=== PATIENT | male | born 1970 | race Caucasian/White ===

== ENCOUNTER → 2016-08-03 | Outpatient (REF) | payer BC ==
[2016-08-03 17:00] LABS: ALBUMIN/GLOBULIN RATIO 1.18 (1.00-1.93); ALKALINE PHOSPHATASE 59 U/L (45-117); ALT/SGPT 41 U/L (12-78); ANION GAP 4 MEQ/L (8-16); AST/SGOT 21 U/L (15-37); BILIRUBIN,TOTAL 0.6 MG/DL (0.2-1.0); BLOOD UREA NITROGEN 19 MG/DL (7-18); CALCIUM LEVEL 9.2 MG/DL (8.5-10.1); CARBON DIOXIDE LEVEL 32 MEQ/L (21-32); CHLORIDE LEVEL 105 MEQ/L (98-107); CHOLESTEROL LEVEL 214 MG/DL (<200); CREATININE FOR GFR 0.92 MG/DL (0.70-1.30); FREE T4 1.04 NG/DL (0.76-1.46); GLOMERULAR FILTRATION RATE > 60.0 (>60); GLUCOSE, FASTING 74 MG/DL (70-105); POTASSIUM SERUM 3.9 MEQ/L (3.5-5.1); SODIUM LEVEL 141 MEQ/L (136-145); TOTAL PROTEIN 7.4 GM/DL (6.4-8.2); TRIGLYCERIDES LEVEL 71 MG/DL (<150)
== END ==
LOC: M LABDRAW1 15:38
PROVIDERS: ATTEND Physician Assistant
DX: E78.4 Other hyperlipidemia (principal); E04.1 Nontoxic single thyroid nodule; Z83.49 Family history of other endocrine, nutritional and metabolic diseases; Z80.42 Family history of malignant neoplasm of prostate
CPT/HCPCS: 36415; 80053; 80061; 81291; 83090; 84439; 84443; G0103

== ENCOUNTER → 2016-08-03 | Outpatient (CLI) | payer BC ==
--- NOTE | 2016-08-03 14:59 | REP ---
Clinical: Follow up thyroid nodule/cyst. Comparison: 07/23/2015. Technique: Real time claudio scale and color evaluation using linear high frequency and curved array transducers. Findings: The thyroid gland is relatively normal in size, contour and overall parenchymal echogenicity. The right thyroid lobe measures 4.5 x 1.7 x 1.5 cm and includes a stable 9 x 8 x 3 mm cyst in the anterior mid lobe and stable 2 mm hypoechoic nodule/cyst in the posterior mid lobe. The left thyroid lobe measures 4.2 x 1.2 x 1.5 cm and includes stable 7 x 7 x 4 mm complex cyst in the posterior mid lobe. Impression: Stable appearance to the thyroid gland and associated cyst/nodules. No change from prior examination.
== END ==
LOC: M WHC 14:07
PROVIDERS: ATTEND Physician Assistant
DX: E04.1 Nontoxic single thyroid nodule (principal)

== ENCOUNTER → 2016-08-22 | Outpatient (REF) | payer BC ==
[2016-08-22 12:15] LABS: FOLATE > 24.0 NG/ML; VITAMIN B12 LEVEL 432 PG/ML
== END ==
LOC: M LABDRAW1 11:17
PROVIDERS: ATTEND Family Medicine
DX: E72.12 Methylenetetrahydrofolate reductase deficiency (principal); Z83.49 Family history of other endocrine, nutritional and metabolic diseases

== ENCOUNTER 2016-09-26 15:21 | Emergency (ER) | payer BC ==
[~2016-09-26] VITALS: Ht 182.9 cm; Wt 81.2 kg
[2016-09-26 15:22] VITALS: BP 182/88
[2016-09-26] MEDS ORDERED: CLON0.5T (15:39)
[2016-09-26] MEDS ORDERED: MORPHINE 4 MG/ML 1ML SYRINGE IV ONE (16:00)
[2016-09-26] MEDS ORDERED: ONDANSETRON 4MG/2ML VIAL (J2405) IV ONE (16:00)
[2016-09-26] MEDS ORDERED: NS 1,000 ML IV ONE (16:00)
[2016-09-26] MEDS ORDERED: KETOROLAC 30 MG/ML VIAL (J1885) IV ONE (16:00)
--- NOTE | 2016-09-26 16:31 | REP ---
Clinical: Right flank pain. Findings: Acute right-sided obstructive uropathy includes perinephric and periureteral stranding as well as hydronephrosis secondary to a 3 mm calculus at the ureterovesicle junction which appears to just about enter into the bladder. Multiple smaller nonobstructing right renal calculi measure up to approximately 2 mm. Left kidney demonstrates multiple presumed parapelvic cysts up to approximately 3.6 cm without hydronephrosis nephrolithiasis. Liver, spleen, pancreas, gallbladder, and bilateral adrenal glands are normal. The enteric system is without obstruction or acute inflammatory process. Pelvis demonstrates relatively normal bladder as described above. Prostate gland is normal. No ascites. No adenopathy. No free air. Abdominal aorta without aneurysm. Surrounding musculoskeletal structures are intact. Lung bases are clear. Impression: Acute right-sided obstructive uropathy with a 3 mm calculus at the ureterovesicle junction which appears to just about to enter into the bladder. Smaller nonobstructing right renal calculi up to 2 mm identified as well as left parapelvic cysts up to 3.6 cm. Signed by Chas Tucker MD 09/26/2016 04:23 P
[2016-09-26 16:44] LABS: BASO % 0.4 % (0.0-1.0); EOS % 0.6 % (0.0-3.0); LARGE UNSTAINED CELL # 0.1 K/mm3 (0.0-0.4); LARGE UNSTAINED CELL % 1.1 % (0.0-4.0); LYMPH # 1.1 K/mm3 (1.5-4.5); LYMPH % 11.8 % (24.0-44.0); MEAN CORPUSCULAR HEMOGLOBIN 31.3 pg (27.0-33.0); MEAN CORPUSCULAR VOLUME 89.4 fl (80.0-96.0); MONO # 0.3 K/mm3 (0.0-0.8); MONO % 3.3 % (0.0-5.0); NEUTROPHILS # 7.6 K/mm3 (1.8-7.7); NEUTROPHILS % 82.8 % (36.0-66.0); PLATELET COUNT, AUTOMATED 314 k/mm3 (150-450); RED CELL DISTRIBUTION WIDTH 12.2 % (11.5-14.5); WHITE BLOOD COUNT 9.1 K/mm3 (4.0-10.0)
[2016-09-26] MEDS ORDERED: FLOM5CAP PO (16:48)
[2016-09-26] MEDS ORDERED: NAPR500T2 PO (16:48)
[2016-09-26] MEDS ORDERED: ZOFR4TAB3 PO (16:48)
[2016-09-26] MEDS ORDERED: PERC5TAB6 PO (16:48)
[2016-09-26] MEDS ORDERED: TAMSULOSIN 0.4 MG CAP PO ONE (17:00)
[2016-09-26 17:01] LABS: ALBUMIN 4.4 GM/DL (3.2-5.2); ALBUMIN/GLOBULIN RATIO 1.16 (1.00-1.93); ALKALINE PHOSPHATASE 65 U/L (45-117); ALT/SGPT 35 U/L (12-78); ANION GAP 11 MEQ/L (8-16); AST/SGOT 18 U/L (15-37); BILIRUBIN,DIRECT 0.1 MG/DL (0.0-0.2); BILIRUBIN,TOTAL 0.4 MG/DL (0.2-1.0); BLOOD UREA NITROGEN 23 MG/DL (7-18); CALCIUM LEVEL 9.1 MG/DL (8.5-10.1); CARBON DIOXIDE LEVEL 25 MEQ/L (21-32); CHLORIDE LEVEL 101 MEQ/L (98-107); CREATININE FOR GFR 1.33 MG/DL (0.70-1.30); GLOMERULAR FILTRATION RATE > 60.0 (>60); GLUCOSE, FASTING 126 MG/DL (70-105); POTASSIUM SERUM 3.7 MEQ/L (3.5-5.1); SODIUM LEVEL 137 MEQ/L (136-145); TOTAL PROTEIN 8.2 GM/DL (6.4-8.2)
== END 2016-09-26 17:05 | disposition home or self-care (01) ==
LOC: M ED 17:01
DX: N20.1 Calculus of ureter (principal); F41.9 Anxiety disorder, unspecified
CPT/HCPCS: 74176; 80048; 80076; 83690; 85025; 96374; 96375; 99283; J1885; J2405

== ENCOUNTER → 2017-07-04 | Outpatient (REF) | payer BC ==
[2017-07-04 13:18] LABS: BASO % 0.8 % (0.0-1.0); EOS # 0.1 10^3/uL (0.0-0.50); EOS % 1.8 % (0.0-3.0); HEMATOCRIT 47.1 % (42.0-52.0); IMMATURE GRANULOCYTE % 0.2 % (0-3.0); LYMPH # 1.2 10^3/uL (1.5-4.5); LYMPH % 24.7 % (24.0-44.0); MEAN CORPUSCULAR HEMOGLOBIN 29.6 pg (27.0-33.0); MEAN CORPUSCULAR VOLUME 87.2 fl (80.0-96.0); MONO # 0.4 10^3/uL (0.0-0.8); MONO % 7.9 % (0.0-5.0); NEUTROPHILS # 3.2 10^3/uL (1.8-7.7); NEUTROPHILS % 64.6 % (36.0-66.0); PLATELET COUNT, AUTOMATED 292 10^3/uL (150-450); RED CELL DISTRIBUTION WIDTH 12.6 % (11.5-14.5); WHITE BLOOD COUNT 4.9 10^3/uL (4.0-10.0)
[2017-07-04 13:56] LABS: BLOOD UREA NITROGEN 18 MG/DL (7-18); CREATININE FOR GFR 1.01 MG/DL (0.70-1.30); GLUCOSE, FASTING 88 MG/DL (70-100)
[2017-07-04 13:57] LABS: ALBUMIN 4.3 GM/DL (3.2-5.2); ALKALINE PHOSPHATASE 57 U/L (45-117); ALT/SGPT 46 U/L (12-78); ANION GAP 6 MEQ/L (8-16); AST/SGOT 24 U/L (7-37); BILIRUBIN,TOTAL 0.6 MG/DL (0.2-1.0); CALCIUM LEVEL 9.2 MG/DL (8.5-10.1); CARBON DIOXIDE LEVEL 30 MEQ/L (21-32); CHLORIDE LEVEL 105 MEQ/L (98-107); CHOLESTEROL LEVEL 230 MG/DL (<200); CHOLESTEROL RISK RATIO 4.509 (<5); FREE T4 1.02 NG/DL (0.76-1.46); GLOMERULAR FILTRATION RATE > 60.0 (>60); HDL CHOLESTEROL 51 MG/DL (>40); LDL CHOLESTEROL 159.4 MG/DL (<100); LIPASE 151 U/L (73-393); NON-HDL-C 179 MG/DL; POTASSIUM SERUM 4.4 MEQ/L (3.5-5.1); PSA SCREENING 1.24 NG/ML (< 4.0); SODIUM LEVEL 141 MEQ/L (136-145); THYROID STIMULATING HORMONE 0.921 uIU/ML (0.358-3.740); TOTAL PROTEIN 7.6 GM/DL (6.4-8.2); TRIGLYCERIDES LEVEL 98 MG/DL (<150)
[2017-07-04 14:13] LABS: TOTAL 25(OH) VITAMIN D 20.5 NG/ML (30.0-100.0); VITAMIN B12 LEVEL 491 PG/ML (247-911)
[2017-07-05 11:52] LABS: FOLATE 20.9 NG/ML (>5.4)
[2017-07-06 00:07] LABS: HOMOCYST(E)INE SERUM 10.9 umol/L (0.0-15.0)
== END ==
LOC: M LAB REF 13:05
DX: E78.2 Mixed hyperlipidemia (principal); R10.13 Epigastric pain; Z80.42 Family history of malignant neoplasm of prostate; E55.9 Vitamin D deficiency, unspecified; E72.12 Methylenetetrahydrofolate reductase deficiency; E04.1 Nontoxic single thyroid nodule
CPT/HCPCS: 82746

== ENCOUNTER → 2017-07-04 | Outpatient (REF) | payer BC | LOC: M SFHCPLAZ 10:32 | DX: E78.2 Mixed hyperlipidemia (principal); E72.12 Methylenetetrahydrofolate reductase deficiency; E04.1 Nontoxic single thyroid nodule; R10.13 Epigastric pain; Z80.42 Family history of malignant neoplasm of prostate; E55.9 Vitamin D deficiency, unspecified; Z53.9 Procedure and treatment not carried out, unspecified reason ==

== ENCOUNTER → 2017-07-07 | Outpatient (CLI) | payer BC | LOC: M RAD 10:31 | DX: E04.1 Nontoxic single thyroid nodule (principal) | CPT/HCPCS: 76536 ==

== ENCOUNTER → 2017-07-20 | Outpatient (CLI) | payer BC ==
[~2017-07-20] MED LIST: E-Z-GAS II EFFERVESCENT PACKET (SODIUM BICARB./CITRIC ACID/SIMETHICONE) As Ordered; E-Z-HD 98% w/w 340GM SUSP BTL As Ordered; E-Z-PAQUE 96% w/w SUSP 176GM BTL As Ordered
== END ==
LOC: M RAD 08:42
DX: R10.13 Epigastric pain (principal)

== ENCOUNTER → 2017-08-01 | Outpatient (CLI) | payer BC | LOC: M RAD 11:25 | DX: M54.6 Pain in thoracic spine (principal) | CPT/HCPCS: 72072 ==

== ENCOUNTER → 2019-01-11 | Outpatient (REF) | payer BC ==
[~2019-01-11] MED LIST changes: +CLON0.5T8; -E-Z-GAS II EFFERVESCENT PACKET (SODIUM BICARB./CITRIC ACID/SIMETHICONE) As Ordered; -E-Z-HD 98% w/w 340GM SUSP BTL As Ordered; -E-Z-PAQUE 96% w/w SUSP 176GM BTL As Ordered; +FLOM0.4C39 PO; +NAPR-885 PO; +PERC5TAB12 PO; +ZOFR4TAB14 PO
[2019-01-11 12:42] LABS: HEMATOCRIT 47.8 % (42.0-52.0); HEMOGLOBIN 15.8 g/dl (13.5-17.5); MEAN CORPUSCULAR HEMOGLOBIN 29.2 pg (27.0-33.0); MEAN CORPUSCULAR HGB CONC 33.1 g/dl (32.0-36.5); MEAN CORPUSCULAR VOLUME 88.4 fl (80.0-96.0); PLATELET COUNT, AUTOMATED 300 10^3/uL (150-450); RED BLOOD COUNT 5.41 10^6/uL (4.30-6.10); WHITE BLOOD COUNT 4.8 10^3/uL (4.0-10.0)
[2019-01-11 12:58] LABS: ALBUMIN 4.4 GM/DL (3.2-5.2); ALT/SGPT 33 U/L (12-78); BILIRUBIN,TOTAL 0.8 MG/DL (0.2-1.0); BLOOD UREA NITROGEN 19 MG/DL (7-18); CALCIUM LEVEL 9.7 MG/DL (8.5-10.1); CARBON DIOXIDE LEVEL 32 MEQ/L (21-32); CHLORIDE LEVEL 106 MEQ/L (98-107); CHOLESTEROL LEVEL 206 MG/DL (<200); CHOLESTEROL RISK RATIO 3.886 (<5); CREATININE FOR GFR 1.01 MG/DL (0.70-1.30); FREE T4 1.09 NG/DL (0.76-1.46); GLOMERULAR FILTRATION RATE > 60.0 (>60); GLUCOSE, FASTING 87 MG/DL (70-100); HDL CHOLESTEROL 53 MG/DL (>40); LDL CHOLESTEROL 138 MG/DL (<100); NON-HDL-C 153 MG/DL; POTASSIUM SERUM 4.6 MEQ/L (3.5-5.1); SODIUM LEVEL 141 MEQ/L (136-145); THYROID STIMULATING HORMONE 0.919 uIU/ML (0.358-3.740); TOTAL PROTEIN 7.9 GM/DL (6.4-8.2); TRIGLYCERIDES LEVEL 73 MG/DL (<150)
[2019-01-11 13:12] LABS: ERYTHROCYTE SEDIMENTATION RATE 5 mm/hr (0-15)
== END ==
LOC: M SFHCPLAZ 10:09
PROVIDERS: ATTEND Family Medicine
DX: G90.01 Carotid sinus syncope (principal); E04.1 Nontoxic single thyroid nodule; E78.5 Hyperlipidemia, unspecified; F41.9 Anxiety disorder, unspecified

== ENCOUNTER → 2019-01-25 | Outpatient (CLI) | payer BC ==
[~2019-01-25] MED LIST changes: +ISOVUE-370 76% 100ML VIAL (Q9967) As Ordered ONE
--- NOTE | 2019-01-25 09:02 | REPVR ---
PROCEDURE INFORMATION: Exam: CT Neck With Contrast Exam date and time: 01/25/2019 8:25 AM Clinical history: 48 years old, male; Other: Thyroid nodule; Additional info: Wendytodyni, thyroid nodulect1, us2 TECHNIQUE: Imaging protocol: Computed tomography images of the neck with intravenous contrast. Radiation optimization: All CT scans at this facility use at least one of these dose optimization techniques: automated exposure control; mA and/or kV adjustment per patient size (includes targeted exams where dose is matched to clinical indication); or iterative reconstruction. Contrast material: ISOVUE 370; Contrast volume: 75 ml; Contrast route: IV; COMPARISON: Thyroid, ST head+neck US 07/07/2017 10:37 AM FINDINGS: Nasopharynx: Unremarkable. Oropharynx: Unremarkable. No significant tonsillar enlargement. Hypopharynx: Unremarkable Larynx: Unremarkable. Normal epiglottis. Retropharyngeal space: Unremarkable. Submandibular/Parotid glands: Normal. Glands are normal in size. Thyroid: Incidental sub-1.5 cm thyroid nodules. No imaging follow-up indicated per ACR guidelines. Lymph nodes: Unremarkable. No lymphadenopathy. Trachea: Visualized trachea is unremarkable. Lungs: Unremarkable as visualized. Bones/joints: Unremarkable. No acute fracture. Soft tissues: Unremarkable. No significant soft tissue swelling. IMPRESSION: 1. No acute findings. 2. Nonacute/incidental findings above. COMMENT: In patients aged 35 years and older with an incidental thyroid nodule equal to or greater than 1.[address], MRI or extrathyroidal US, further evaluation with dedicated thyroid US is recommended for patients with normal life expectancy and without comorbidities. For smaller nodules without suspicious features, no further evaluation or follow up is recommended. Electronically signed by: Daniel Cooley On 01/25/2019 09:02:05 AM
--- NOTE | 2019-01-25 09:37 | REP ---
CAROTID ULTRASOUND: Real-time ultrasound evaluation and duplex Doppler interrogation of the extracranial carotid vasculature is performed. There is no significant plaquing or narrowing in both carotid bulbs, internal or external carotid arteries. There is no significant luminal narrowing. There is no evidence of hemodynamically significant stenosis of either internal carotid artery. Normal flow velocities are seen. The vertebral arteries demonstrate normal direction of flow. RIGHT LEFT Peak systolic velocity ICA 82 cm/s 66.4 cm/s End diastolic velocity ICA 36.9 cm/s 27.1 cm/s Peak systolic velocity CCA 93.0 cm/s 104.2 cm/s Peak systolic velocity ECA 72.3 cm/s 65.5 cm/s ICA/CCA ratio 0.88 0.64 IMPRESSION: No significant luminal narrowing of the internal carotid arteries . No evidence of hemodynamically significant stenosis. Electronically Signed by Иван Crocker MD 01/25/2019 09:29 A
== END ==
LOC: M RAD 07:55
PROVIDERS: ATTEND Family Medicine
DX: E04.1 Nontoxic single thyroid nodule (principal); G45.1 Carotid artery syndrome (hemispheric)

== ENCOUNTER → 2019-12-27 | Outpatient (REF) | payer BC ==
[~2019-12-27] MED LIST changes: +CLON0.5T2; -CLON0.5T8; -ISOVUE-370 76% 100ML VIAL (Q9967) As Ordered ONE
[2019-12-27 19:16] LABS: HEMATOCRIT 48.4 % (42.0-52.0); HEMOGLOBIN 16.1 g/dl (13.5-17.5); MEAN CORPUSCULAR HEMOGLOBIN 29.7 pg (27.0-33.0); MEAN CORPUSCULAR HGB CONC 33.3 g/dl (32.0-36.5); MEAN CORPUSCULAR VOLUME 89.3 fl (80.0-96.0); PLATELET COUNT, AUTOMATED 304 10^3/uL (150-450); RED BLOOD COUNT 5.42 10^6/uL (4.30-6.10); WHITE BLOOD COUNT 6.2 10^3/uL (4.0-10.0)
[2019-12-27 19:18] LABS: APPEARANCE, URINE CLEAR (CLEAR); BACTERIA, URINE AUTO NEGATIVE (NEGATIVE); BILIRUBIN, URINE AUTO NEGATIVE (NEGATIVE); BLOOD, URINE BLOOD 1+ (NEGATIVE); COLOR, URINE YELLOW (YELLOW); GLUCOSE, URINE (UA) AUTO NEGATIVE (NEGATIVE); KETONE, URINE AUTO NEGATIVE (NEGATIVE); LEUKOCYTE ESTERASE, URINE AUTO NEGATIVE (NEGATIVE); MUCUS, URINE SMALL (NEGATIVE); NITRITE, URINE AUTO NEGATIVE (NEGATIVE); PROTEIN, URINE AUTO NEGATIVE (NEGATIVE); RBC, URINE AUTO 4 /HPF (0-3); SPECIFIC GRAVITY URINE AUTO 1.021 (1.002-1.035); SQUAMOUS EPITHELIAL CELL UR AU 0 /HPF (0-6); UROBILINOGEN, URINE AUTO 0.2 mg/dL (0.0-2.0); WBC, URINE AUTO 1 /HPF (0-3)
[2019-12-27 19:57] LABS: ALBUMIN 4.4 GM/DL (3.2-5.2); ALT/SGPT 38 U/L (12-78); AMYLASE 91 U/L (25-115); BILIRUBIN,TOTAL 0.5 MG/DL (0.2-1.0); BLOOD UREA NITROGEN 20 MG/DL (7-18); CALCIUM LEVEL 9.7 MG/DL (8.5-10.1); CARBON DIOXIDE LEVEL 28 MEQ/L (21-32); CHLORIDE LEVEL 105 MEQ/L (98-107); CHOLESTEROL LEVEL 237 MG/DL (<200); CHOLESTEROL RISK RATIO 4.647 (<5); GLOMERULAR FILTRATION RATE > 60.0 (>56); GLUCOSE, FASTING 68 MG/DL (70-100); HDL CHOLESTEROL 51 MG/DL (>40); LDL CHOLESTEROL 166 MG/DL (<100); LIPASE 178 U/L (73-393); NON-HDL-C 186 MG/DL; POTASSIUM SERUM 4.7 MEQ/L (3.5-5.1); SODIUM LEVEL 138 MEQ/L (136-145); TOTAL PROTEIN 7.9 GM/DL (6.4-8.2); TRIGLYCERIDES LEVEL 102 MG/DL (<150)
== END ==
LOC: M LABDRWAD 17:08
PROVIDERS: ATTEND Family Medicine
DX: Z12.5 Encounter for screening for malignant neoplasm of prostate (principal); N45.1 Epididymitis; E78.5 Hyperlipidemia, unspecified; R10.9 Unspecified abdominal pain
CPT/HCPCS: 36415; 80053; 80061; 81001; 82150; 83690; 85027; 87086; G0103

== ENCOUNTER → 2020-01-28 | Outpatient (CLI) | payer BC ==
[~2020-01-28] MED LIST changes: +GASTROGRAFIN SOLUTION 30ML (Q9963) As Ordered ONE
--- NOTE | 2020-02-05 08:30 | REP ---
CT OF THE ABDOMEN AND PELVIS CLINICAL: Generalized abdominal pain. TECHNIQUE: Axial noncontrast images from the lung bases to the pubic symphysis with coronal and sagittal reformations. COMPARISON: 09/26/2016 FINDINGS: Liver, spleen, pancreas, gallbladder, and bilateral adrenal glands are normal for noncontrast evaluation. The kidneys demonstrate presumed bilateral peripelvic cysts (left greater than right) along with few small nonobstructing intrarenal calculi measuring up to 2 mm. No hydroureter or obstructing ureteral calculi are identified. The enteric system is without obstruction or acute inflammatory process. Normal terminal ileum and appendix are identified in the right lower quadrant. Sigmoid diverticula noted without acute diverticulitis. Pelvis demonstrates mild prostatomegaly with mass effect on the base of the bladder. No pelvic fluid. No ascites. No free air. No adenopathy. Abdominal aorta without aneurysm. Surrounding musculoskeletal structures are intact and without acute osseous abnormality. IMPRESSION: * Kidneys demonstrate relatively stable bilateral peripelvic cysts and few bilateral nonobstructing intrarenal calculi up to 2 mm. * Sigmoid diverticula without acute diverticulitis. * Mild prostatomegaly with mass effect on the base of the bladder. MTDD
== END ==
LOC: M RAD 08:40
PROVIDERS: ATTEND Family Medicine
DX: R10.9 Unspecified abdominal pain (principal); N45.1 Epididymitis; N28.1 Cyst of kidney, acquired; N20.0 Calculus of kidney
CPT/HCPCS: 74176; Q9963

== ENCOUNTER → 2020-05-16 | Outpatient (CLI) | payer SELFPAY ==
[~2020-05-16] MED LIST changes: -GASTROGRAFIN SOLUTION 30ML (Q9963) As Ordered ONE
== END ==
LOC: M LABSMTC 08:44
PROVIDERS: ATTEND Pediatrics
DX: Z20.822 Contact with and (suspected) exposure to COVID-19 (principal)

== ENCOUNTER → 2020-07-22 | Outpatient (CLI) | payer BC ==
[~2020-07-22] MED LIST changes: -CLON0.5T2; +CLON0.5T2 PO; +RA T500C2 PO; +VITMTA PO
== END ==
LOC: M LABSMTC 11:04
PROVIDERS: ATTEND Anesthesiology
DX: Z01.812 Encounter for preprocedural laboratory examination (principal); Z20.822 Contact with and (suspected) exposure to COVID-19

== ENCOUNTER → 2020-07-23 | Outpatient (CLI) | payer BC ==
[2020-07-23 16:06] LABS: APPEARANCE, URINE CLEAR (CLEAR); BACTERIA, URINE AUTO NEGATIVE (NEGATIVE); BILIRUBIN, URINE AUTO NEGATIVE (NEGATIVE); BLOOD, URINE BLOOD 1+ (NEGATIVE); COLOR, URINE YELLOW (YELLOW); GLUCOSE, URINE (UA) AUTO NEGATIVE (NEGATIVE); KETONE, URINE AUTO NEGATIVE (NEGATIVE); LEUKOCYTE ESTERASE, URINE AUTO NEGATIVE (NEGATIVE); MUCUS, URINE SMALL (NEGATIVE); NITRITE, URINE AUTO NEGATIVE (NEGATIVE); PROTEIN, URINE AUTO NEGATIVE (NEGATIVE); RBC, URINE AUTO 2 /HPF (0-3); SPECIFIC GRAVITY URINE AUTO 1.025 (1.002-1.035); SQUAMOUS EPITHELIAL CELL UR AU 0 /HPF (0-6); WBC, URINE AUTO 1 /HPF (0-3)
== END ==
LOC: M WUC 14:02
PROVIDERS: ATTEND Nurse Practitioner Women's Health
DX: R31.29 Other microscopic hematuria (principal)

== ENCOUNTER 2020-07-27 10:06 | Day surgery (SDC) | payer BC ==
[~2020-07-27] VITALS: Ht 185.4 cm; Wt 84.4 kg
[~2020-07-27 10:06] MED LIST changes: +NS 1,000 ML IV ONE
[2020-07-27] MEDS ORDERED: LIDOCAINE 2% 100MG/5ML SDV (FOR ANES.) As Ordered ONE (10:16)
[2020-07-27] MEDS ORDERED: propofoL 200 MG/20 ML VIAL As Ordered ONE (10:16)
--- NOTE | 2020-07-27 12:07 | ROOR ---
Patient Name: Edda Zuñiga Procedure Date: 07/27/2020 11:41 AM Date of : 1970 Age: 49 Room: [facility] Gender: Male Note Status: Finalized Procedure: Colonoscopy Indications: Pelvic pain, Lower abdominal pain, Change in bowel habits Providers: Faisal LYNN MD Referring MD: Nirmal Jain MD Requesting Provider: Medicines: Monitored Anesthesia Care Complications: No immediate complications. Procedure: Pre-Anesthesia Assessment: - The heart rate, respiratory rate, oxygen saturations, blood pressure, adequacy of pulmonary ventilation, and response to care were monitored throughout the procedure. The Colonoscope was introduced through the anus and advanced to 10 cm into the ileum. The colonoscopy was performed without difficulty. The patient tolerated the procedure well. The quality of the bowel preparation was good. Findings: The perianal and digital rectal examinations were normal. Two sessile polyps were found in the ascending colon and cecum. The polyps were 6 to 7 mm in size. These polyps were removed with a cold snare. Resection and retrieval were complete. Small Internal Hemorrhoids. The exam was otherwise without abnormality on direct and retroflexion views. Impression: - Two 6 to 7 mm polyps in the ascending colon and in the cecum, removed with a cold snare. Resected and retrieved. - Small Internal Hemorrhoids. - The examination of the colon and terminal ileum was otherwise normal on direct and retroflexion views. Recommendation: - Use fiber, for example Citrucel, Fibercon, Konsyl or Metamucil. - Miralax 1 capful (17 grams) in 8 ounces of water PO daily. - Repeat colonoscopy in 5 years for surveillance. Procedure Code(s): --- Professional --- 80502, Colonoscopy, flexible; with removal of tumor(s), polyp(s), or other lesion(s) by snare technique Diagnosis Code(s): --- Professional --- R19.4, Change in bowel habit R10.30, Lower abdominal pain, unspecified R10.2, Pelvic and perineal pain K63.5, Polyp of colon CPT copyright 2019 [employer]. All rights reserved. The codes documented in this report are preliminary and upon tank pumper review may be revised to meet current compliance requirements. Faisal Lynn MD Faisal LYNN MD 07/27/2020 12:06:49 PM Electronically signed by Faisal LYNN MD Number of Addenda: 0 Note Initiated On: 07/27/2020 11:41 AM Estimated Blood Loss: Estimated blood loss: none.
[2020-07-27 12:38] VITALS: BP 119/71
== END 2020-07-27 12:40 | disposition home or self-care (01) ==
LOC: M OPP 10:06
PROVIDERS: ATTEND Internal Medicine Gastroenterology
DX: K63.5 Polyp of colon (principal); R19.4 Change in bowel habit; R10.2 Pelvic and perineal pain; R10.30 Lower abdominal pain, unspecified; Z79.899 Other long term (current) drug therapy

== ENCOUNTER → 2020-12-17 | Outpatient (CLI) | payer BC ==
[~2020-12-17] MED LIST changes: -NS 1,000 ML IV ONE
--- NOTE | 2020-12-17 12:18 | REP ---
INDICATION: RECURRENT SINUSITIS. COMPARISON: None. TECHNIQUE: Four views FINDINGS: The sinuses are clear. The bony structures are intact. IMPRESSION: Negative radiographs of the sinuses. <Electronically signed by Shaji Freeman > 12/17/20 [id number]
== END ==
LOC: M RAD 11:42
PROVIDERS: ATTEND Physician Assistant Medical
DX: J32.9 Chronic sinusitis, unspecified (principal)

== ENCOUNTER → 2021-01-01 | Outpatient (CLI) | payer BC ==
--- NOTE | 2021-01-01 08:23 | REPVR ---
PROCEDURE INFORMATION: Exam: CT Maxillofacial Without Contrast, Sinus Exam date and time: 01/01/2021 8:02 AM Age: 50 years old Clinical indication: Sinusitis; Chronic; Additional info: Chronic maxillary sinusitis TECHNIQUE: Imaging protocol: CT Maxillofacial without contrast. Focus on the sinuses. Radiation optimization: All CT scans at this facility use at least one of these dose optimization techniques: automated exposure control; mA and/or kV adjustment per patient size (includes targeted exams where dose is matched to clinical indication); or iterative reconstruction. COMPARISON: Thyroid, ST head+neck US 07/07/2017 10:37 AM FINDINGS: Frontal sinuses: Normal. No air-fluid levels. Ethmoid air cells: Minimal ethmoid disease. Sphenoid sinuses: Normal. No air-fluid levels. Maxillary sinuses: Mild polypoid thickening in the dependent maxillary sinus on the right. Nasal cavity/Septum: The nasal septum is midline. The ostiomeatal units are patent. Orbital cavity: The orbits are intact. Bones/joints: No acute fracture. Soft tissues: Unremarkable. Lymph nodes: No lymphadenopathy in the neck. Brain: The included brain demonstrates mild diffuse involutional change for age. IMPRESSION: Limited sinus disease. Electronically signed by: Hamlet Mathew On 01/01/2021 08:23:22 AM
== END ==
LOC: M RAD 07:44
PROVIDERS: ATTEND Otolaryngology
DX: J32.0 Chronic maxillary sinusitis (principal)

== ENCOUNTER → 2021-06-05 | Outpatient (REF) | LOC: M LABSMTC 09:22 | PROVIDERS: ATTEND Pediatrics | DX: Z20.822 Contact with and (suspected) exposure to COVID-19 (principal) ==

== ENCOUNTER → 2021-09-16 | Outpatient (REF) | payer BC | LOC: M LAB REF 15:06 | PROVIDERS: ATTEND Physician Assistant | DX: R53.83 Other fatigue (principal); R05.9 Cough, unspecified ==

== ENCOUNTER → 2021-09-23 | Outpatient (REF) | payer BC ==
[2021-09-23 16:37] LABS: HEMATOCRIT 47.6 % (42.0-52.0); HEMOGLOBIN 15.8 g/dl (13.5-17.5); MEAN CORPUSCULAR HEMOGLOBIN 29.6 pg (27.0-33.0); MEAN CORPUSCULAR HGB CONC 33.2 g/dl (32.0-36.5); MEAN CORPUSCULAR VOLUME 89.1 fl (80.0-96.0); PLATELET COUNT, AUTOMATED 316 10^3/uL (150-450); RED BLOOD COUNT 5.34 10^6/uL (4.30-6.10); WHITE BLOOD COUNT 6.9 10^3/uL (4.0-10.0)
[2021-09-23 17:13] LABS: ALBUMIN 4.3 GM/DL (3.2-5.2); ALT/SGPT 33 U/L (12-78); BILIRUBIN,TOTAL 0.6 MG/DL (0.2-1.0); BLOOD UREA NITROGEN 14 MG/DL (7-18); CALCIUM LEVEL 9.9 MG/DL (8.5-10.1); CARBON DIOXIDE LEVEL 27 MEQ/L (21-32); CHLORIDE LEVEL 109 MEQ/L (98-107); CHOLESTEROL LEVEL 234 MG/DL (<200); CHOLESTEROL RISK RATIO 5.086 (<5); CREATININE FOR GFR 1.04 MG/DL (0.70-1.30); FREE T4 1.15 NG/DL (0.76-1.46); GLOMERULAR FILTRATION RATE > 60.0 (>56); GLUCOSE, FASTING 88 MG/DL (70-100); HDL CHOLESTEROL 46 MG/DL (>40); LDL CHOLESTEROL 165 MG/DL (<100); NON-HDL-C 188 MG/DL; POTASSIUM SERUM 4.2 MEQ/L (3.5-5.1); SODIUM LEVEL 142 MEQ/L (136-145); TOTAL PROTEIN 7.7 GM/DL (6.4-8.2); TRIGLYCERIDES LEVEL 116 MG/DL (<150)
== END ==
LOC: M SFHCADAM 11:25
PROVIDERS: ATTEND Family Medicine
DX: R53.82 Chronic fatigue, unspecified (principal); U09.9 Post COVID-19 condition, unspecified; F32.9 Major depressive disorder, single episode, unspecified; E78.2 Mixed hyperlipidemia; F41.9 Anxiety disorder, unspecified; E04.1 Nontoxic single thyroid nodule; Z12.5 Encounter for screening for malignant neoplasm of prostate; G31.9 Degenerative disease of nervous system, unspecified
CPT/HCPCS: 80053; 80061; 84439; 84443; 85027; 86140; G0103

== ENCOUNTER → 2021-10-09 | Outpatient (CLI) | payer BC | LOC: M RAD 12:33 | PROVIDERS: ATTEND Family Medicine | DX: G31.9 Degenerative disease of nervous system, unspecified (principal) ==

== ENCOUNTER → 2022-01-05 | Outpatient (REF) | payer BC ==
[2022-01-05 18:11] LABS: ALBUMIN 4.4 GM/DL (3.2-5.2); ALT/SGPT 31 U/L (12-78); BILIRUBIN,TOTAL 0.6 MG/DL (0.2-1.0); BLOOD UREA NITROGEN 17 MG/DL (7-18); CALCIUM LEVEL 9.6 MG/DL (8.5-10.1); CARBON DIOXIDE LEVEL 24 MEQ/L (21-32); CHLORIDE LEVEL 105 MEQ/L (98-107); CHOLESTEROL LEVEL 267 MG/DL (<200); CHOLESTEROL RISK RATIO 5.134 (<5); CREATININE FOR GFR 1.09 MG/DL (0.70-1.30); GLOMERULAR FILTRATION RATE > 60.0 (>56); GLUCOSE, FASTING 82 MG/DL (70-100); HDL CHOLESTEROL 52 MG/DL (>40); LDL CHOLESTEROL 188 MG/DL (<100); NON-HDL-C 215 MG/DL; SODIUM LEVEL 138 MEQ/L (136-145); TOTAL PROTEIN 7.7 GM/DL (6.4-8.2); TRIGLYCERIDES LEVEL 137 MG/DL (<150)
[2022-01-05 19:46] LABS: VITAMIN B12 LEVEL 565 PG/ML (247-911)
[2022-01-05 19:47] LABS: FOLATE > 24.0 NG/ML (>5.4)
== END ==
LOC: M SFHCADAM 14:18
PROVIDERS: ATTEND Family Medicine
DX: Z15.89 Genetic susceptibility to other disease (principal); E78.2 Mixed hyperlipidemia

== ENCOUNTER → 2022-08-30 | Outpatient (REF) | payer BC ==
[2022-08-30 16:22] LABS: ALBUMIN 4.7 G/DL (3.2-5.2); ALKALINE PHOSPHATASE 65 U/L (46-116); ALT/SGPT 39 U/L (7.0-40); AST/SGOT 23 U/L (<34); BILIRUBIN,TOTAL 0.8 MG/DL (0.3-1.2); BLOOD UREA NITROGEN 24 MG/DL (9-23); CARBON DIOXIDE LEVEL 28 MMOL/L (20-31); CHLORIDE LEVEL 104 MMOL/L (98-107); CHOLESTEROL LEVEL 216 MG/DL (<200); CHOLESTEROL RISK RATIO 4.46 (<5); CREATININE FOR GFR 1.11 MG/DL (0.70-1.30); GLOMERULAR FILTRATION RATE > 60.0 (>56); GLUCOSE, FASTING 88 MG/DL (60-100); HDL CHOLESTEROL 48.4 MG/DL (>40); LDL CHOLESTEROL 146.2 MG/DL (<100); NON-HDL-C 167.6 MG/DL; POTASSIUM SERUM 4.4 MMOL/L (3.5-5.1); SODIUM LEVEL 139 MMOL/L (136-145); TOTAL PROTEIN 8.4 G/DL (5.7-8.2); TRIGLYCERIDES LEVEL 107 MG/DL (<150)
== END ==
LOC: M SFHCADAM 13:57
PROVIDERS: ATTEND Family Medicine
DX: E78.2 Mixed hyperlipidemia (principal); Z15.89 Genetic susceptibility to other disease

== ENCOUNTER → 2023-05-18 | Outpatient (CLI) | payer OTHER ==
[2023-05-18 18:05] LABS: HEMATOCRIT 47.4 % (42.0-52.0); MEAN CORPUSCULAR HEMOGLOBIN 29.7 pg (27.0-33.0); MEAN CORPUSCULAR HGB CONC 33.8 g/dl (32.0-36.5); MEAN CORPUSCULAR VOLUME 88.1 fl (80.0-96.0); PLATELET COUNT, AUTOMATED 308 10^3/uL (150-450); RED BLOOD COUNT 5.38 10^6/uL (4.30-6.10); WHITE BLOOD COUNT 6.7 10^3/uL (4.0-10.0)
[2023-05-18 18:32] LABS: C REACTIVE PROTEIN QUANTITATIV < 0.40 MG/DL (<1.0)
[2023-05-18 18:34] LABS: ALBUMIN 4.4 G/DL (3.2-5.2); ALKALINE PHOSPHATASE 60 U/L (46-116); ALT/SGPT 32 U/L (7.0-40); AST/SGOT 18 U/L (<34); BILIRUBIN,TOTAL 0.7 MG/DL (0.3-1.2); BLOOD UREA NITROGEN 21 MG/DL (9-23); CALCIUM LEVEL 9.7 MG/DL (8.5-10.1); CARBON DIOXIDE LEVEL 28 MMOL/L (20-31); CHLORIDE LEVEL 105 MMOL/L (98-107); CHOLESTEROL LEVEL 199 MG/DL (<200); CREATININE FOR GFR 0.99 MG/DL (0.70-1.30); GLOMERULAR FILTRATION RATE > 60.0 (>56); GLUCOSE, FASTING 90 MG/DL (60-100); HDL CHOLESTEROL 46.2 MG/DL (>40); NON-HDL-C 152.8 MG/DL; POTASSIUM SERUM 3.9 MMOL/L (3.5-5.1); PSA SCREENING 1.15 NG/ML (< 4.00); SODIUM LEVEL 139 MMOL/L (136-145); TOTAL PROTEIN 7.4 G/DL (5.7-8.2); TRIGLYCERIDES LEVEL 104 MG/DL (<150)
[2023-05-18 18:38] LABS: THYROID STIMULATING HORMONE 1.136 uIU/ML (0.55-4.78)
[2023-05-18 18:59] LABS: HEMOGLOBIN A1c 5.5 % (4.0-6.0)
[2023-05-20 21:07] LABS: ANA (HEP2) Negative (.); HOMOCYST(E)INE SERUM 9.9 umol/L (0.0-14.5)
== END ==
LOC: M LAB 17:30
PROVIDERS: ATTEND Family Medicine
DX: Z12.5 Encounter for screening for malignant neoplasm of prostate (principal); E78.2 Mixed hyperlipidemia; E72.12 Methylenetetrahydrofolate reductase deficiency; F32.9 Major depressive disorder, single episode, unspecified; R53.82 Chronic fatigue, unspecified; F41.9 Anxiety disorder, unspecified; Z13.1 Encounter for screening for diabetes mellitus; E04.1 Nontoxic single thyroid nodule; G31.9 Degenerative disease of nervous system, unspecified
CPT/HCPCS: 36415; 80053; 80061; 83036; 83090; 84439; 84443; 85027; 86038; 86140; G0103

== ENCOUNTER → 2023-06-01 | Outpatient (CLI) | payer OTHER | LOC: M PLARAD 08:52 | PROVIDERS: ATTEND Family Medicine | DX: G31.9 Degenerative disease of nervous system, unspecified (principal); J01.00 Acute maxillary sinusitis, unspecified ==

== ENCOUNTER → 2024-05-14 | Outpatient (REF) | payer OTHER | LOC: M LAB REF 12:03 | PROVIDERS: ATTEND Physician Assistant Medical | DX: B34.9 Viral infection, unspecified (principal) ==

== ENCOUNTER → 2024-06-10 | Outpatient (REF) | payer OTHER ==
[2024-06-10 17:25] LABS: BASO # 0.1 10^3/uL (0.0-0.2); BASO % 1.2 % (0.0-1.0); EOS # 0.2 10^3/uL (0.0-0.5); EOS % 3.6 % (0.0-3.0); HEMATOCRIT 49.7 % (42.0-52.0); HEMOGLOBIN 16.3 g/dl (13.5-17.5); LYMPH # 1.6 10^3/uL (1.5-5.0); LYMPH % 27.2 % (24.0-44.0); MEAN CORPUSCULAR HEMOGLOBIN 29.2 pg (27.0-33.0); MEAN CORPUSCULAR HGB CONC 32.8 g/dl (32.0-36.5); MEAN CORPUSCULAR VOLUME 88.9 fl (80.0-96.0); MONO # 0.4 10^3/uL (0.0-0.8); MONO % 7.4 % (2.0-8.0); NEUTROPHILS # 3.5 10^3/uL (1.5-8.5); NEUTROPHILS % 60.4 % (36.0-66.0); PLATELET COUNT, AUTOMATED 336 10^3/uL (150-450); RED BLOOD COUNT 5.59 10^6/uL (4.30-6.10); WHITE BLOOD COUNT 5.8 10^3/uL (4.0-10.0)
[2024-06-10 17:36] LABS: ERYTHROCYTE SEDIMENTATION RATE 25 mm/hr (0-20)
[2024-06-10 17:44] LABS: HEMOGLOBIN A1c 5.4 % (4.0-6.0)
[2024-06-10 17:54] LABS: C REACTIVE PROTEIN QUANTITATIV < 0.50 MG/DL (<1.0)
[2024-06-10 17:55] LABS: FREE T4 1.32 NG/DL (0.89-1.76); THYROID STIMULATING HORMONE 1.297 uIU/ML (0.55-4.78)
[2024-06-10 17:56] LABS: ALBUMIN 4.2 G/DL (3.2-5.2); ALKALINE PHOSPHATASE 84 U/L (40-129); ALT/SGPT 38 U/L (7.0-40); AST/SGOT 24 U/L (<34); BILIRUBIN,TOTAL 0.6 MG/DL (0.3-1.2); BLOOD UREA NITROGEN 14 MG/DL (9-23); CALCIUM LEVEL 9.7 MG/DL (8.5-10.1); CARBON DIOXIDE LEVEL 28 MMOL/L (20-31); CHLORIDE LEVEL 104 MMOL/L (98-107); CHOLESTEROL LEVEL 204 MG/DL (<200); CHOLESTEROL RISK RATIO 4.37 (<5); CREATININE FOR GFR 1.04 MG/DL (0.70-1.30); GLOMERULAR FILTRATION RATE > 60.0 (>56); GLUCOSE, FASTING 82 MG/DL (60-100); HDL CHOLESTEROL 46.6 MG/DL (>40); LDL CHOLESTEROL 130.8 MG/DL (<100); NON-HDL-C 157.4 MG/DL; POTASSIUM SERUM 4.2 MMOL/L (3.5-5.1); SODIUM LEVEL 141 MMOL/L (136-145); TRIGLYCERIDES LEVEL 133 MG/DL (<150)
[2024-06-12 15:12] LABS: HOMOCYST(E)INE SERUM 9.6 umol/L (<11.4)
[2024-06-12 15:22] LABS: ANA SCREEN, IFA NEGATIVE (NEGATIVE)
== END ==
LOC: M SFHCADAM 11:54
PROVIDERS: ATTEND Physician Assistant
DX: E78.2 Mixed hyperlipidemia (principal); E72.12 Methylenetetrahydrofolate reductase deficiency; F32.9 Major depressive disorder, single episode, unspecified; Z12.5 Encounter for screening for malignant neoplasm of prostate; Z13.1 Encounter for screening for diabetes mellitus; E04.1 Nontoxic single thyroid nodule; K12.1 Other forms of stomatitis
CPT/HCPCS: 80053; 80061; 83036; 83090; 84439; 84443; 85025; 85652; 86038; 86140; G0103

== ENCOUNTER → 2024-09-19 | Outpatient (REF) | payer OTHER ==
[~2024-09-19] MED LIST changes: -FLOM0.4C39 PO; +TAMS-18 PO
[2024-09-19 14:24] LABS: FOLATE > 24.00 NG/ML (>5.4)
[2024-09-19 14:26] LABS: VITAMIN B12 LEVEL 569 PG/ML (211-911)
== END ==
LOC: M SFHCADAM 10:11
PROVIDERS: ATTEND Family Medicine
DX: R41.3 Other amnesia (principal)